=== PATIENT | female | born 1980 | race Caucasian/White ===

== ENCOUNTER 2021-01-30 12:44 | Emergency (ER) | payer OTHER ==
[~2021-01-30] VITALS: Ht 157.5 cm; Wt 54.4 kg
[2021-01-30] MEDS ORDERED: [UNRECOGNIZED DRUG - REMARK] (12:55)
[2021-01-30 14:17] VITALS: BP 145/109
--- NOTE | 2021-01-30 16:12 | EKG ---
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 : 1980 Requested By: Alexandru Harrell Order Number: [id number] MD: Hamilton Whittington Measurements Intervals [place] Rate: 87 P: 75 [place]: 89 QRS: 76 QRSD: 77 T: -7 QT: 359 QTc: 432 Interpretive Statements Sinus rhythm Short [place] interval Borderline T wave abnormalities No previous ECG available for comparison Electronically Signed On 01-30-2021 16:11:54 INSPECTOR INSULATION by Hamilton Whittington [email or web address] <ELECTRONICALLY SIGNED> By: Hamilton Whittington MD, [facility] 01/30/21 1611 1254 1254 Hamilton Whittington MD, [facility] /EPI
== END 2021-01-30 14:18 | disposition left against medical advice (07) ==
LOC: M.ERS 12:44
DX: R07.89 Other chest pain (principal); Z53.21 Procedure and treatment not carried out due to patient leaving prior to being seen by health care provider